=== PATIENT | male | born 1985 | race Native Hawaiian/Other Pacific Islander ===

== ENCOUNTER 2022-04-22 07:41 | Emergency (ER) | payer BC ==
[~2022-04-22] VITALS: Ht 177.8 cm; Wt 93.0 kg
[2022-04-22 07:43] VITALS: TEMP 98
[2022-04-22 08:05] LABS: PLATELET COUNT 192 K/uL (142-355)
[2022-04-22 08:13] LABS: POTASSIUM 3.8 mmol/L (3.6-5.2)
[2022-04-22 09:14] VITALS: BP 119/68
== END 2022-04-22 09:14 | disposition home or self-care (01) ==
LOC: ED 07:41
PROVIDERS: Emergency Medicine Emergency Medical Services
DX: R07.89 Other chest pain (principal); R06.02 Shortness of breath
CPT/HCPCS: 36415; 80053; 83735; 84484; 85027; 85379; 85610; 93005; 96360; 96361; 99284

== ENCOUNTER 2022-06-11 00:58 | Inpatient (IN) | payer BC ==
[~2022-06-11] VITALS: Ht 177.8 cm; Wt 103.1 kg
[2022-06-11] VITALS (14 sets, daily range): BP systolic 100–139; BP diastolic 58–86; TEMP 97.5–98.6; Ht 177.8 cm; Wt 103.1 kg
[2022-06-11 01:27] LABS: PLATELET COUNT 267 K/uL (142-355)
[2022-06-11 01:30] LABS: POTASSIUM 3.5 mmol/L (3.6-5.2); SODIUM 143 mmol/L (136-145)
[2022-06-11 01:42] LABS: PARTIAL THROMBOPLASTIN TIME 22.3 SECONDS (24.5-33.6)
[2022-06-11] MEDS ORDERED: PROBIOTI1 PO (10:13)
[2022-06-11] MEDS ORDERED: MULTIVITAMI1 PO (10:14)
[2022-06-12 03:37] VITALS: BP 116/73; TEMP 98.8
[2022-06-12 04:26] LABS: PLATELET COUNT 173 K/uL (142-355)
[2022-06-12 04:47] LABS: POTASSIUM 4.2 mmol/L (3.6-5.2)
[2022-06-12 08:00] VITALS: BP 120/81; TEMP 97.9
[2022-06-12 12:00] VITALS: BP 118/72; TEMP 98.6
[2022-06-12 16:00] VITALS: BP 131/76; TEMP 98.9
[2022-06-12 19:44] VITALS: BP 123/79; TEMP 98.7
[2022-06-12 23:42] VITALS: BP 126/81; TEMP 99
[2022-06-13 03:33] VITALS: BP 113/72; TEMP 99.2
[2022-06-13 05:33] LABS: PLATELET COUNT 171 K/uL (142-355)
[2022-06-13 05:43] LABS: POTASSIUM 3.6 mmol/L (3.6-5.2)
[2022-06-13 08:00] VITALS: BP 130/82; TEMP 98
[2022-06-13 12:00] VITALS: BP 135/86; TEMP 98.3
[2022-06-13 16:00] VITALS: BP 130/86; TEMP 98
[2022-06-13] MEDS ORDERED: PROMETHAZINE HY25 MG PO (16:12)
[2022-06-13] MEDS ORDERED: HYDR10TA47A PO (16:15)
== END 2022-06-13 17:45 | disposition home or self-care (01) | DRG 440 ==
LOC: ED 00:58 → MED/SURG 03:30
PROVIDERS: ADMIT Emergency Medicine; ATTEND Internal Medicine
DX: K85.00 Idiopathic acute pancreatitis without necrosis or infection (principal); R09.02 Hypoxemia
CPT/HCPCS: 36415; 80053; 80061; 80307; 80320; 81002; 82150; 83690; 83880; 84484; 85027; 85379; 85610; 85730; 87635; 93005; 96360; 96361; 96374; 96375; 96376; 99284; J1170; J1885; J2270; J2405; Q9963; U0003

== ENCOUNTER 2022-10-27 08:41 | Outpatient (CLI) | payer OTHER ==
[~2022-10-27 08:41] MED LIST: HYDR10TA47A PO; MULTIVITAMI1 PO; PROBIOTI1 PO; PROMETHAZINE HY25 MG PO
== END 2022-10-27 18:53 | disposition home or self-care (01) ==
LOC: MRI 08:41
PROVIDERS: ATTEND Orthopaedic Surgery
DX: M47.22 Other spondylosis with radiculopathy, cervical region (principal)